=== PATIENT | male | born 1985 | race Caucasian/White ===

== ENCOUNTER 2024-03-21 19:21 | Emergency (ER) | payer MEDICAID ==
[~2024-03-21] VITALS: Ht 180.3 cm; Wt 81.6 kg
[2024-03-21 20:42] VITALS: BP 150/100; TEMP 98.2; O2SAT 98
[2024-03-21 20:49] LABS: BASOPHILS % (AUTO) 0.3 % (0.0-2.0); EOSINOPHILS % (AUTO) 0.2 % (0.0-6.0); HEMATOCRIT 41 % (39-51); HEMOGLOBIN 13.8 g/dL (13.5-17.5); LYMPHOCYTES # (AUTO) 1.5 K/uL (0.8-4.8); LYMPHOCYTES % (AUTO) 37.2 % (20.0-44.0); MEAN CORPUSCULAR HEMOGLOBIN 28 PG (26.0-33.0); MEAN CORPUSCULAR HGB CONC 34 g/dl (31.0-36.0); MEAN CORPUSCULAR VOLUME 84 fL (80-96); MONOCYTES # (AUTO) 0.3 K/uL (0.1-1.30); MONOCYTES % (AUTO) 8.5 % (2.0-12.0); NEUTROPHILS # (AUTO) 2.1 K/uL (1.8-8.9); NEUTROPHILS % (AUTO) 53.8 % (43.0-81.0); PLATELET COUNT (AUTO) 151 K/uL (150-450); RED BLOOD CELL COUNT(AUTO) 4.88 MIL/uL (4.5-6.0); RED CELL DISTRIBUTION WIDTH 13.5 % (11.5-15.0); WHITE BLOOD COUNT (AUTO) 3.9 K/uL (4.3-11.0)
[2024-03-21 20:57] LABS: CREATININE 0.8 mg/dL (0.6-1.3); POTASSIUM 3.9 mmol/L (3.5-5.1)
[2024-03-21 21:03] LABS: CALCIUM, SERUM 8.6 mg/dL (8.5-10.1)
[2024-03-21] MEDS ORDERED: PENI500T PO (21:49)
[2024-03-21] MEDS ORDERED: IBUP-1955 PO (21:49)
[2024-03-21] MEDS ORDERED: ACET-2605 PO (21:49)
== END 2024-03-21 22:10 | disposition home or self-care (01) ==
LOC: ER 19:21
DX: K04.7 Periapical abscess without sinus (principal); M79.605 Pain in left leg; M79.89 Other specified soft tissue disorders; F17.200 Nicotine dependence, unspecified, uncomplicated; Z79.899 Other long term (current) drug therapy; Z60.2 Problems related to living alone
CPT/HCPCS: 36415; 73590-TC; 73610-TC; 80048-TC; 83880; 85025-TC